=== PATIENT | female | born 1940 | race Caucasian/White ===

== ENCOUNTER 2017-10-28 04:38 | Emergency (ER) | payer BC ==
[~2017-10-28] VITALS: Ht 165.1 cm; Wt 76.7 kg
[2017-10-28 04:42] VITALS: Ht 165.1 cm; Wt 76.7 kg
[2017-10-28 05:16] LABS: UA SPECIFIC GRAVITY 1.025 (1.005-1.035); microscopic required? YES; urine erythrocyte 3+ (NEGATIVE)
[2017-10-28 05:43] VITALS: BP 172/67
== END 2017-10-28 05:43 | disposition home or self-care (01) ==
LOC: ED 04:38
PROVIDERS: Emergency Medicine
DX: N39.0 Urinary tract infection, site not specified (principal); I10 Essential (primary) hypertension; E78.00 Pure hypercholesterolemia, unspecified; Z88.0 Allergy status to penicillin
CPT/HCPCS: J1885

== ENCOUNTER 2019-08-05 16:24 | Emergency (ER) | payer BC ==
[~2019-08-05] VITALS: Ht 165.1 cm; Wt 69.4 kg
[2019-08-05 17:09] VITALS: Ht 165.1 cm; Wt 69.4 kg
[2019-08-05 20:08] VITALS: BP 160/78
== END 2019-08-05 20:08 | disposition home or self-care (01) ==
LOC: ED 16:24
DX: S50.862A Insect bite (nonvenomous) of left forearm, initial encounter (principal); L03.114 Cellulitis of left upper limb; Z88.0 Allergy status to penicillin; W57.XXXA Bitten or stung by nonvenomous insect and other nonvenomous arthropods, initial encounter; Y93.89 Activity, other specified; Y92.89 Other specified places as the place of occurrence of the external cause; Y99.8 Other external cause status
CPT/HCPCS: 90715

== ENCOUNTER 2020-06-19 05:35 | Emergency (ER) | payer BC ==
[~2020-06-19] VITALS: Ht 162.6 cm; Wt 79.4 kg
[2020-06-19 05:52] VITALS: Ht 162.6 cm; Wt 79.4 kg
[2020-06-19 07:43] LABS: BASOPHIL % 0.1 % (0-2); PLATELET COUNT 242 x10^3mcL (130-400); RED CELL DISTRIBUTION WIDTH 13.9 % (11.5-14.5)
[2020-06-19 07:53] LABS: CALCIUM 8.8 mg/dL (8.5-10.1); CARBON DIOXIDE 34.6 mmol/L (21-32); CHLORIDE SERUM 102 mmol/L (98-107); GLUCOSE SERUM 104 mg/dL (74-106); POTASSIUM SERUM 4.1 mmol/L (3.5-5.1); SODIUM SERUM 141 mmol/L (136-145)
[2020-06-19 07:57] LABS: UA SPECIFIC GRAVITY 1.015 (1.005-1.035); microscopic required? YES; urine erythrocyte NEGATIVE (NEGATIVE)
[2020-06-19 07:58] LABS: ALBUMIN 3.5 g/dL (3.4-5.0); ALKALINE PHOSPHATASE 67 U/L (46-116); ALT/SGPT 17 U/L (14-59); AST/SGOT 17 U/L (15-37); BILIRUBIN TOTAL 0.4 mg/dL (0.20-1.00); LIPASE 82 IU/L (73-393); TOTAL PROTEIN, SERUM 7.5 g/dL (6.4-8.2)
[2020-06-19 09:13] VITALS: BP 139/57
== END 2020-06-19 09:14 | disposition home or self-care (01) ==
LOC: ED 05:35
PROVIDERS: Emergency Medicine
DX: K29.70 Gastritis, unspecified, without bleeding (principal); K57.90 Diverticulosis of intestine, part unspecified, without perforation or abscess without bleeding; I10 Essential (primary) hypertension; E11.9 Type 2 diabetes mellitus without complications; E78.00 Pure hypercholesterolemia, unspecified; Z88.0 Allergy status to penicillin